=== PATIENT | male | born 1990 | race Caucasian/White ===

== ENCOUNTER 2016-09-21 15:51 | Emergency (ER) | payer SELFPAY ==
[~2016-09-21] VITALS: Ht 172.7 cm; Wt 113.7 kg
[2016-09-21] MEDS ORDERED: DEXAMETHASONE 4 MG TABLET PO ONE (16:00)
[2016-09-21 16:30] VITALS: BP 141/79
[2016-09-21] MEDS ORDERED: KETOROLAC 30 MG/1 ML ONE (16:32)
[2016-09-21] MEDS ORDERED: DEXAMETHASONE 4 MG TABLET ONE (16:32)
[2016-09-21 16:35] LABS: BLOOD UREA NITROGEN 12 mg/dL (7-18)
[2016-09-21 16:41] LABS: IS PT STATUS REG ER OR PRE ER? YES
[2016-09-21] MEDS ORDERED: KETOROLAC 60 MG/2 ML IM ONE (17:00)
== END 2016-09-21 17:30 | disposition home or self-care (01) ==
LOC: ED 17:24
DX: R09.1 Pleurisy (principal); J02.8 Acute pharyngitis due to other specified organisms
CPT/HCPCS: 36415; 80048; 82040; 84484; 85025; 93005; 96372; 99285; J1885